=== PATIENT | female | born 1995 | race Caucasian/White ===

== ENCOUNTER → 2016-06-05 | Day surgery (SDC) | payer OTHER ==
[~2016-06-05] VITALS: Ht 165.1 cm; Wt 45.4 kg
[~2016-06-05] MED LIST: 0.9% Sodium Chloride 1,000 ML IV SCH; BIRTH CONTROL PO; BUPR100T7 PO; Ketamine 10 mg/mL 20 mL Inj ONE; Lactated Ringer's 1,000 ML IV SCH; MetoCLOpramide 5 mg/mL 2 mL Inj IVPUSH PRN; Ondansetron 2 mg/mL 2 mL Inj IVPUSH PRN; Sodium Chloride LOK Flush 10 mL Syringe IV PRN; fentaNYL-PF 50 mCg/mL 2 mL Inj IVPUSH PRN
[2016-06-05 12:58] VITALS: BP 119/68; PULSE 51; RESP 16; O2SAT 99
--- NOTE | 2016-06-05 13:46 | PCM.HPANE ---
Patient Data Surgeon Admitting Provider: Attending Provider:Rojas Manning MD Primary Care Physician:Grace Allred DO Other Provider: Reason for Visit Abdominal Pain Ht/WT & BMI Height (Feet): 5 Height (Inches): 5 Weight (Kilograms): 45.36 Body Mass Index 16.00 Allergies Coded Allergies: No Known Allergies (Verified Allergy, Unknown, 06/05/16) Past Anesthesia History Anesthesia History: Denies:: Abnormal Airway, Anesthesia Reactions, Difficult Intubation, Fam Anesthesia Reaction, Fam Malignant Hypertherm, Malignant Hyperthermia Diabetes History Hx Diabetes?: No MRSA MRSA: No Medications Reported Medications [ Control] No Conflict Check1 Tablet PO DAILY 06/05/16 Bupropion ER (Wellbutrin SR)100 Mg Tablet.er100 Mg PO DAILY Ref 0 06/05/16 History HEENT History: Denies:: Abnormal Airway Difficult Intubation Hx of Heart Problems?: No Cardiovascular History: Denies:: AICD Pacemaker Valvular Heart Disease Hx of Respiratory Problem?: No Neurological History: Denies:: CVA Hx of GI Problems?: Yes Female Hx: Denies:: Currently (UPREG NEGATIVE YESTERDAY) Skin History: Denies:: History Skin Disorders? Hx Musculoskeletal Problems?: Yes Psycho Social History: Positive for:: Anxiety Hx Depression Hx Surgeries?: Yes (EYE SURGERY) Hx Diabetes: No Hx Alcohol Use: NoHx Substance Use: No Stop/Bang Treated for Sleep Apnea?: No Do You Have a CPAP Machine?: No S-Snoring: Do You Snore Loudly: No T-Tired: feel tired, fatigued: No O-Obsered: Observed not breath: No P-Blood Pressure: treated: No B- Body Mass Index > 35 kg/m2: No A- Age over 50: No N- Neck Large Circumference: No G- Gender Male: No SHAYLA Total Score: 0 Risk Assessment Category Category 1A: Patient has history of documented sleep apnea, and HAS NOT received any narcotic, sedative or anesthesia administration during this stay. Category 1B: Patient has history of documented sleep apnea, and HAS received any narcotic , sedative or anesthesia administration during this stay Category 2: Patient has SUSPECTED Obstructive Sleep Apnea, and HAS received any narcotic , sedative or anesthesia administration during this stay. Category 3: Patient has SUSPECTED Obstructive Sleep Apnea and HAS NOT received narcotic, sedative or anesthesia administration during this stay. Category 4: Outpatient in Procedural Areas with known sleep apnea or who screen positive for High Risk via the STOP/BANG questionnaire. Exam Exam Vital Signs Vital Signs Date Time Temp Pulse Resp B/P Pulse Ox O2 Delivery O2 Flow Rate FiO2 06/05/16 12:58 37.0 51 16 119/68 99 Room Air General Appearance: Alert, Oriented X3, Cooperative, No Acute Distress HEENT/AIRWAY: MP 2 Lungs: Clear to Auscultation, Normal Air Movement Heart: Exam Unremarkable, Regular Rate/Rhythm, No Murmurs/Rubs/Gallops Plan Impression Patient chart reviewed, patient interviewed and anesthestic plan with risks, benefits, and alternatives discussed, and informed consent obtained. ASA Physical Status: ASA1 Normal Healthy Anesthetic Plan: MAC Bene/Risks/Altern/Consents: Yes HP Complete Prior to Induction: Yes Ulysses Fuller MD Jun 05, 2016 13:46
[2016-06-05 14:12] VITALS: BP 115/67; PULSE 82; RESP 14; O2SAT 97
[2016-06-05 14:20] VITALS: BP 110/65; PULSE 77; RESP 16; O2SAT 97
[2016-06-05 14:30] VITALS: BP 106/65; PULSE 70; RESP 16; O2SAT 97
[2016-06-05 14:40] VITALS: BP 111/67; PULSE 78; RESP 16; O2SAT 96
[2016-06-05 14:50] VITALS: BP 116/78; PULSE 63; RESP 16; O2SAT 98
--- NOTE | 2016-06-05 16:25 | PCM.ANEP1 ---
Post Anesthesia Phase 1 PACU Phase 1 Assessment Vital Signs Vital Signs Date Time Temp Pulse Resp B/P Pulse Ox O2 Delivery O2 Flow Rate FiO2 06/05/16 14:50 63 16 116/78 98 Room Air 06/05/16 14:40 78 16 111/67 96 Room Air 06/05/16 14:30 70 16 106/65 97 Room Air 06/05/16 14:20 77 16 110/65 97 Room Air 06/05/16 14:12 82 14 115/67 97 Room Air 06/05/16 12:58 37.0 51 16 119/68 99 Room Air Anesthetic Administered: MAC Level of Alertness: Awake, talking MOORE's with Equal Strength: Yes Pain: No Nausea or Vomiting: No Oxygen Delivery: Nasal Cannula Lungs: Clear to Auscultation, Normal Air Movement Dermatome Level: Full Sensation Ulysses Fuller MD Jun 05, 2016 16:25
--- NOTE | 2016-06-05 16:26 | PCM.ANEP2 ---
Post Anesthesia Evaluation ASA/CMS Post Anesthesia VS in Patient's Normal Range?: Yes Resp Stable; Airway Patent?: Yes CV Function & Hydration Stable: Yes Mental Status Recovered?: Yes Pain control Satisfactory?: Yes N/V Control Satisfactory?: Yes Ulysses Fuller MD Jun 05, 2016 16:25
--- NOTE | 2016-06-05 18:32 | ENDO ---
[address] [address] ENDOSCOPY PROCEDURE PATIENT: SILVESTRE PENNINGTON : 1995 MR#: [id number] ADMIT: 06/05/2016 JOB ID: [id number] PRIMARY CARE PROVIDER: Grace Allred DO PROCEDURE: Esophagogastroduodenoscopy with biopsies. INDICATIONS: A 21-year-old female with weight loss and nausea of uncertain etiology. EQUIPMENT: GIF H 180 J. SEDATION: Monitored anesthesia. The patient had a tremendous amount of preprocedural anxiety and we converted her from a conscious sedation case to an anesthesia case. PROCEDURE INFORMATION: After the risks and benefits were explained, written and verbal informed consent was obtained. The patient was brought into the endoscopy suite and placed into the left lateral decubitus position. Sedation was achieved using the above-stated medications with the addition of oxygen via nasal cannula. The scope was introduced into the mouth through the bite block and advanced under direct visualization to the 3rd portion of the duodenum. The scope was slowly withdrawn to carefully examine the mucosa for any defects or lesions. Retroflexed views were accomplished in the stomach, the stomach was decompressed, and the scope removed from the patient, who tolerated the procedure well. FINDINGS: 1. Duodenum: No mucosal pathology identified from the bulb through to the 3rd portion. Random biopsies were taken from D2. It was interesting to see the compression of the duodenal mucosa at the level of the superior mesenteric artery suggestive of possible superior mesenteric artery syndrome. 2. Stomach: Slightly J-shaped stomach. Mild gastropathy. Random biopsy was taken for exclusion of Helicobacter or other pathology. No ulcers. No mass lesions. No outlet obstruction. Retroflexed views of the LES were unremarkable. 3. Esophagus: The squamocolumnar junction correlated with the top of the gastric folds. No acute erosive changes. No strictures. No mass lesions. The GEJ was at 38 cm from the incisors. ENDOSCOPIC DIAGNOSES: 1. Mild gastropathy. 2. Subjective moderate compression at the level of the SMA takeoff in D3. RECOMMENDATIONS: 1. Await histopathology. 2. If Helicobacter is found, it will need to be eradicated standard triple therapy. 3. An upper GI series contrast study is pursued to evaluate for the presence of SMA syndrome. 4. Follow up on results in GI Clinic with Arnaldo Keyshawn, PA-C. 5. Depending on the results, the patient may need to consider a period of complete abstinence from cannabis to explore the possibility of a developing hyperemesis cannabis type syndrome (the patient is currently not vomiting). CC: Grace Allred, DO
--- NOTE | 2016-06-07 13:55 | PATH ---
SURGICAL PATHOLOGY Attending Physician:James Monterroso CASE STATUS: Signed Out PATIENT NAME: SILVESTRE PENNINGTON PID: [id number] : 1995 DATE COLLECTED:06/05/2016 00:00 SPECIMEN: 1: Duodenum, Biopsy 2: Gastric, Biopsy CLINICAL HISTORY: 1). DUODENAL BIOPSY 2). GASTRIC BIOPSY FINAL DIAGNOSIS: 1.DUODENUM, BIOPSY: NO DIAGNOSTIC ABNORMALITY. Negative for intraepithelial lymphocytosis, villous blunting, or other features of celiac sprue. Negative for Giardia organisms, dysplasia and malignancy. 2.GASTRIC BIOPSY: NORMAL GASTRIC CORPUS. Negative for Helicobacter organisms. Negative for intestinal metaplasia. No evidence of dysplasia or malignancy. ICD10 codeK21.0 GROSS DESCRIPTION: The specimen is received in two formalin filled containers labeled with the patient's name. 1). The specimen is sublabeled "duodenal" and consists of 3 portions of tissue which aggregate to 0.4 x 0.3 x 0.2 CM. The specimen is entirely submitted in cassette 1A. 2). The specimen is sublabeled "gastric" and consists of a 0.3 x 0.3 x 0.2 CM. The specimen is entirely submitted in cassette 2A. 06/06/2016 [facility] MICRO DESCRIPTION: See diagnosis. ICD-9 CODES: CPT CODES: 1: 90729 2: 72409 Electronically Signed Out John Larios MD [facility] [address], [place] [address] Technical component performed at [facility], [facility] [address], [place], [address]
== END | disposition home or self-care (01) ==
LOC: END 00:59
PROVIDERS: ATTEND Internal Medicine Gastroenterology
DX: K31.9 Disease of stomach and duodenum, unspecified (principal); R63.4 Abnormal weight loss; R10.9 Unspecified abdominal pain; R11.0 Nausea; J45.909 Unspecified asthma, uncomplicated; J41.0 Simple chronic bronchitis; F17.210 Nicotine dependence, cigarettes, uncomplicated
CPT/HCPCS: 43239; J2250; J7030